=== PATIENT | female | born 2000 | race Two or more races ===

== ENCOUNTER 2022-04-10 20:11 | Emergency (ER) | payer MEDICAID ==
[~2022-04-10] VITALS: Ht 162.6 cm; Wt 50.7 kg
[2022-04-10 20:50] VITALS: BP 113/73
[2022-04-11] MEDS ORDERED: LIDOCAINE 1% HCL (LOCAL ANESTH.) INJ 20ML MDV ID ONE (00:30)
[2022-04-11] MEDS ORDERED: ACET-1158 PO (01:34)
[2022-04-11] MEDS ORDERED: CEPH-510 PO (01:34)
== END 2022-04-11 01:34 | disposition home or self-care (01) ==
LOC: ER 20:11
DX: S61.211A Laceration without foreign body of left index finger without damage to nail, initial encounter (principal); W26.0XXA Contact with knife, initial encounter; Y93.89 Activity, other specified; Y92.89 Other specified places as the place of occurrence of the external cause; Y99.8 Other external cause status
CPT/HCPCS: 12002; 73140; 99283; J2001